=== PATIENT | male | born 1950 ===

== ENCOUNTER 2016-11-10 10:38 | Day surgery (SDC) | payer MEDICARE, OTHER ==
[~2016-11-10] VITALS: Ht 180.3 cm; Wt 107.0 kg
[~2016-11-10 10:38] MED LIST: 0.9% Sodium Chloride 1,000 ML IV SCH; Sodium Chloride LOK Flush 10 mL Syringe IV PRN; fentaNYL-PF 50 mCg/mL 2 mL Inj IVPUSH PRN
[2016-11-10 11:05] VITALS: BP 123/78; PULSE 64; RESP 18; O2SAT 95
[2016-11-10 12:35] VITALS: BP 119/67; PULSE 68; RESP 14; O2SAT 96
--- NOTE | 2016-11-10 12:36 | PCM.ENDCOL ---
Colonoscopy Date of Service: November 10, 2016 Physician Conner Clinton MD Pre Procedure Diagnosis: screening h/o colon cancer Procedure Colonoscopy PROCEDURE IN DETAIL: Prep adequate Withdrawal time 17 minutes After unremarkable rectal examination the Olympus video colonoscope was inserted patient's anal canal and was advanced to cecum. Landmarks were identified including the ileocecal valve and appendiceal orifice. Scope was withdrawn systematically. Visualized colonic mucosa showed healthy shiny mucosa with normal healthy-appearing vasculature. In the cecum, there was 1 polyp which was about 1 mm in size. This was removed completely using cold snare. In the ascending colon, there were 2 polyps. One was 3 mm in size which was removed completely using cold snare the other one was 2 mm in size which was removed completely using cold snare. In the descending colon there was a 3 mm polyp which was removed completely using cold snare. In the sigmoid colon, an anastomosis site was at noted. No inflammation or ulceration masses noted. Also in the ascending colon there was a 8 mm yellowish tinged with normal-appearing mucosa with positive pillow sign. Most likely a lipoma. In the sigmoid colon and to extend the right side of the colon, isolated diverticuli noted medium size. In the rectum retroflexion was done which showed hemorrhoids. Anal canal was inspected carefully on the way out and hemorrhoids noted. Impression Polyps 4 status post complete removal Diverticuli Possible lipoma Intact anastomosis site Hemorrhoids Recommendation Repeat colonoscopy 3 years Diverticular diet Presedation Assessment Risks and Benefits Informed consent was obtained from the patient after all risks and benefits including but not limited to drug reaction, infection, pain, bleeding, perforation, as well as alternatives were discussed. Patient monitoring Continuous pulse oximetry, cardiac monitoring, blood pressure monitoring, IV access, and oxygen at 2L per nasal cannula. Periprocedural Fentanyl: Fentanyl 125mcg Incrementally Midazolam: Midazolam 8mg Incrementally Complications There were no periprocedural complications identified. Post Procedure Plan Post Procedure Recommendations 1. Restrict activities today. 2. Resume normal activities in the morning. 3. Resume medications. 4. Patient informed of normal post procedure side effects as bloating, drowsiness, blood streaking in the stool. 5. average risk CRCS. If colon polyps come back as: -Hyperplastic- can repeat colonoscopy in 10 years -Tubular adenoma- repeat colonoscopy in 5 years -Tubulovillous/villous adenoma- repeat colonoscopy in 3 years -If any dysplasia- return to clinic as soon as possible 6. Please don't hesitate to call me with any questions. Conner Clinton MD November 10, 2016 12:36
[2016-11-10 12:45] VITALS: BP 120/61; PULSE 65; RESP 14; O2SAT 97
[2016-11-10 12:55] VITALS: BP 107/69; PULSE 67; RESP 14; O2SAT 98
--- NOTE | 2016-11-11 10:45 | PATH ---
SURGICAL PATHOLOGY Attending Physician:Conner Clinton M.D. CASE STATUS: Signed Out PATIENT NAME: YANA CARROLL PID: [id number] : 1950 DATE COLLECTED:11/10/2016 21:23 SPECIMEN: 1: Colon, Biopsy 2: Colon, Biopsy 3: Colon, Biopsy CLINICAL HISTORY: 1). CECAL POLYP 2). ASCENDING COLON POLYPS 3). DESCENDING COLON POLYP FINAL DIAGNOSIS: 1.CECAL POLYP: TUBULAR ADENOMA. 2.ASCENDING COLON POLYPS: TUBULAR ADENOMAS, MULTIPLE FRAGMENTS. 3.DESCENDING COLON POLYP: TUBULAR ADENOMA. ICD10 D12.0 D12.2 D12.4 GROSS DESCRIPTION: The specimen is received in three formalin filled containers labeled with the patient's name. 1). The specimen is sublabeled "cecal polyp" and consists of a 0.3 x 0.3 x 0.2 CM portion of tissue which is entirely submitted in cassette 1A. 2). The specimen is sublabeled "ascending colon polyps" and consists of multiple portions of tissue which aggregate to 0.4 x 0.4 x 0.3 CM. The specimen is entirely submitted in cassette 2A. 3). The specimen is sublabeled "descending colon polyp" and consists of multiple portions of tissue which aggregate to 0.3 x 0.3 x 0.2 CM. The specimen is entirely submitted in cassettes 3A. 11/10/2016 [facility] MICRO DESCRIPTION: See diagnosis. ICD-9 CODES: CPT CODES: 1: 71623 2: 40265 3: 92066 Electronically Signed Out Winifred Nunn MD [facility] Pathology [facility], [place] [address] Technical component performed at [facility], [facility] [address], [place], [address]
== END 2016-11-10 23:59 | disposition home or self-care (01) ==
LOC: END 10:38
PROVIDERS: ATTEND Internal Medicine
DX: Z12.11 Encounter for screening for malignant neoplasm of colon (principal); D12.0 Benign neoplasm of cecum; D12.2 Benign neoplasm of ascending colon; D12.4 Benign neoplasm of descending colon; K57.30 Diverticulosis of large intestine without perforation or abscess without bleeding; K64.8 Other hemorrhoids; K63.89 Other specified diseases of intestine; Z85.038 Personal history of other malignant neoplasm of large intestine; G90.9 Disorder of the autonomic nervous system, unspecified; F10.10 Alcohol abuse, uncomplicated; Z87.891 Personal history of nicotine dependence
CPT/HCPCS: 45385; 99153; G0500; J7030